=== PATIENT | male | born 2005 | race Caucasian/White ===

== ENCOUNTER 2023-09-06 16:32 | Outpatient (CLI) | payer MEDICAID, SELFPAY | END 2023-09-06 16:33 | disposition home or self-care (01) | LOC: NFLDUCREF 16:32 | PROVIDERS: PCP Nurse Practitioner; Visit Provider Nurse Practitioner | DX: L02.416 Cutaneous abscess of left lower limb (principal); B95.62 Methicillin resistant Staphylococcus aureus infection as the cause of diseases classified elsewhere | CPT/HCPCS: 87070; 87186 ==

== ENCOUNTER 2024-01-04 12:24 | Emergency (ER) | payer MEDICAID, OTHER, SELFPAY ==
[2024-01-04 12:37] VITALS: BP 131/84; PULSE 56; RESP 18; TEMP 36.1; O2SAT 99; BMI 21.4
--- NOTE | 2024-01-04 12:40 | CRLHL7_ITS ---
For Patients: As a result of the Century Cures Act, medical imaging exams and procedure reports are released immediately into your electronic medical record. You may view this report before your referring provider. If you have questions, please contact your health care provider. INDICATION: Trauma. TECHNIQUE: Right ankle radiographs, 3 views. COMPARISON: None. FINDINGS: There is a linear lucency involving the anterior process of the calcaneus without definite cortical discontinuity. The joint spaces are preserved. The talar dome remains smooth. The ankle mortise joint space is preserved. No significant soft tissue edema or radiopaque foreign bodies. IMPRESSION: Questionable linear lucency involving the anterior process of the calcaneus may represent a subtle nondisplaced fracture. Correlate with point tenderness. If clinically warranted, recommend CT for improved characterization. Dictated by Neville Bravo MD @ 01/04/2024 1:31:51 PM (Electronically Signed)
--- NOTE | 2024-01-04 13:16 | CRLHL7_ITS ---
For Patients: As a result of the Century Cures Act, medical imaging exams and procedure reports are released immediately into your electronic medical record. You may view this report before your referring provider. If you have questions, please contact your health care provider. INDICATION: Trauma. TECHNIQUE: Right foot radiographs, 3 views. COMPARISON: None. FINDINGS: There is a suspected nondisplaced fracture of the anterior process of the calcaneus. The joint spaces are preserved. The Lisfranc joint appears intact. Probable bipartite tibial hallux sesamoid, with a normal anatomic variation. No significant soft tissue edema or radiopaque foreign bodies. IMPRESSION: Suspected nondisplaced fracture of the anterior process of the calcaneus. Correlate with point tenderness. CT may be considered for improved characterization if clinically warranted. Dictated by Neville Bravo MD @ 01/04/2024 2:14:51 PM (Electronically Signed)
--- NOTE | 2024-01-04 13:24 | ED.GENADULT ---
HPI - General Adult General Date Seen: 01/04/24 Chief complaint: Extremity Pain/Injury, Lower Stated complaint: dropped beam on ankle at work Time Seen by Provider: 01/04/24 13:07 History of Present Illness HPI narrative: This is a pleasant generally healthy 18-year-old male presenting to the ER today with his co-worker for a work related injury to his right foot and ankle. He was working a large metal pipe on to a strap for a hassan for to be lifted in the air when it came loose from his shoulders and fell. It struck him on the posterior and lateral side of his right foot. She it pushed his foot into the ground and created a upward flexion of his forefoot and toes. He has developed some pain especially in the mid foot with some swelling over the dorsal lateral midfoot. Pain with weight-bearing. No associated numbness or weakness in the toes. No laceration. No pain in his knee, tibia/fibula, gastroc. Related Data Home Medications ?Medication ?Instructions ?Recorded ?Confirmed buspirone 10 mg tablet 10 mg PO BID 09/06/23 12/21/23 escitalopram oxalate 20 mg tablet mg PO 09/06/23 12/21/23 gabapentin 600 mg tablet mg PO 09/06/23 12/21/23 lamotrigine 25 mg tablet 50 mg PO BID 09/06/23 12/21/23 Previous Rx's ?Medication ?Instructions ?Recorded mupirocin 2 % topical ointment 1 applic topical TID #15 grams 12/21/23 Allergies Allergy/AdvReac Type Severity Reaction Status Date / Time Penicillins Allergy Verified 12/21/23 08:29 [facility] Medical History (Updated 01/04/24 @ 16:13 by Lencho Lentz MD) MRSA (methicillin resistant staph aureus) culture positive ?Z22.322 - Carrier or suspected carrier of Methicillin resistant Staphylococcus aureus (ICD-10) Exam Narrative: Exam Narrative: Constitutional: Appears well-developed and well-nourished. Active. Non-toxic appearing. HENT: Head: Atraumatic. No signs of injury. Nose: No nasal discharge. Mouth/Throat: Mucous membranes are moist. Pharynx is normal. Tonsils symmetric. Uvula midline. Airway patent. Eyes: Conjunctivae normal and EOM are normal. Pupils are equal, round, and reactive to light. Right eye exhibits no discharge. Left eye exhibits no discharge. No icterus. Neck: Normal range of motion. Neck supple. No adenopathy. No stridor. Cardiovascular: Normal rate and regular rhythm. No murmur heard. No murmurs, rubs, or gallops. Brisk capillary refill Pulmonary/Chest: Effort normal. No stridor. No respiratory distress. No wheezes.No rhonchi. No rales. No retractions. Musculoskeletal: Normal except for his right foot. Right lower extremity: Hip nontender, normal range of motion. Femur, quad, hamstring on tear noted. Knee normal inspection. Normal range of motion. No tenderness. Tibial spine, proximal tibia, proximal fibula nontender. Gastrocnemius and calf muscles nontender. Achilles nontender. Posterior calcaneus and heel are nontender. Medial and lateral malleolus of the ankle are nontender. Limited range of motion of the ankle due to foot pain and swelling. He does have a fairly large area of swelling and evolving ecchymosis on the lateral and dorsal aspect of the midfoot just anterior to the lateral malleolus. There is no bony tenderness at the base of the 5th metatarsal. Arch of the foot is nontender. Forefoot and toes are nontender. He does have palpable and normal DP and PT pulses with normal brisk distal cap refill. Intact distal sensory function with light touch in the dorsal 1st webspace, sole of the foot, medial and lateral foot. Normal range of motion. Neurological: Alert. Normal strength. No cranial nerve deficit or sensory deficit. Coordination normal. GCS eye subscore is 4. GCS verbal subscore is 5. GCS motor subscore is 6. Skin: Skin is warm. No rash noted. Const: Vital Signs, click to edit/add: Vital Signs - 24 hr 01/04/24 12:37 Temperature 97 F L Pulse Rate [Pulse Oximeter] 56 L Respiratory Rate 18 Blood Pressure [Ri ght Upper Arm] 131/84 Pulse Oximetry 99 Oxygen Delivery Me thod Room Air Course Vital Signs Vital signs: Initial Vital Signs Temperature 97 F L 01/04/24 12:37 Temperature Source Temporal Artery Scan 01/04/24 12:37 Pulse Rate 56 L 01/04/24 12:37 Respiratory Rate 18 01/04/24 12:37 Blood Pressure 131/84 01/04/24 12:37 Blood Pressure Mean 99 01/04/24 12:37 Pulse Oximetry 99 01/04/24 12:37 Oxygen Delivery Method Room Air 01/04/24 12:37 Vital Signs Temperature 97 F L 01/04/24 12:37 Pulse Rate 56 L 01/04/24 12:37 Respiratory Rate 18 01/04/24 12:37 Blood Pressure 131/84 01/04/24 12:37 Pulse Oximetry 99 01/04/24 12:37 Oxygen Delivery Method Room Air 01/04/24 12:37 Temperature 97 F L 01/04/24 12:37 Pulse Rate 56 L 01/04/24 12:37 Respiratory Rate 18 01/04/24 12:37 Blood Pressure 131/84 01/04/24 12:37 Pulse Oximetry 99 01/04/24 12:37 Oxygen Delivery Method Room Air 01/04/24 12:37 Medications Administered Medications: Discontinued Medications Generic Name Dose Route Start Last Admin Trade Name Freq PRN Reason Stop Dose Admin Ibuprofen 600 mg 01/04/24 13:45 01/04/24 15:46 Ibuprofen 200 Mg Tablet PO 01/04/24 13:46 Not Given ONCE ONE Medical Decision Making MDM Narrative Medical decision making narrative: 18-year-old male presenting to the ER today with his co-worker for evaluation of an accidental right foot injury that occurred at work this afternoon. A metal pipe that was being loaded onto a hassan fell loose from its stays and landed directly on the patient's foot. He describes that he had his ankle flexed little bit off the ground and the pipe hit him right on the top/side of the foot. He has had pain with weight-bearing ever since then. X-rays of the patient's right ankle were ordered by nursing in triage and are negative for any acute ankle fracture. On my clinical exam he does have marked swelling and tenderness over the dorsal lateral midfoot. This raises concern for possible foot fracture such as a calcaneus, talus, or tarsal bone fracture. Also concerning for potential Lisfranc joint injury. I sent the patient back for x-rays of his foot and they do confirm a nondisplaced fracture through the anterior process of the calcaneus. Otherwise foot x-rays look normal. He is neurovascularly intact. Discussed with Orthopedics. They would agree with the plan for nonweightbearing with crutches and Cam boot. They will see him in clinic next week for further evaluation. They can not obtain CT scanning clinic as necessary. Although calcaneus fractures are often associated with spine fractures because they are associated with fall from height, in this instance the patient had a direct blow onto the top/side of his foot by heavy pipe. I do not think he needs spine imaging her for a radiography. Discussed fracture care, splint care. Strict nonweightbearing status. Precautions for return to the ER and complete symptoms of compartment syndrome reviewed in detail with the patient and his co-worker. Questions answered and they are comfortable plan for outpatient follow-up next week with Orthopedics. Imaging Data XR foot: Attestation: I have reviewed the pertinent imaging results. Radiologist's impression: IMPRESSION: Suspected nondisplaced fracture of the anterior process of the calcaneus. Correlate with point tenderness. CT may be considered for improved characterization if clinically warranted. XR ankle: Attestation: I have reviewed the pertinent imaging results. Radiologist's impression: IMPRESSION: Questionable linear lucency involving the anterior process of the calcaneus may represent a subtle nondisplaced fracture. Correlate with point tenderness. If clinically warranted, recommend CT for improved characterization. Discharge Plan Discharge Clinical Impression: Calcaneus fracture, right Instructions: Calcaneal Fracture (ED) Additional Instructions: As we discussed, wear the walking boot and use the crutches whenever your up and around. Do not bear any weight on your right foot because stepping on your right foot could cause displacement of your broken bone. Keep your foot elevated when you can. Put up on a pillow when he resting on the couch or in bed. Apply an ice pack for 15-20 minutes every 3-4 hours to help reduce swelling and bruising. Use Tylenol or ibuprofen if needed for pain. Please follow-up with the [facility] next week for a recheck appointment. He will need follow-up x-rays to make sure the fracture is healing. If it displaces you may end up needing surgery. If you need to reschedule your orthopedic appointment, call [phone] As we discussed, return to the ER right away if you have any problems especially worsening or uncontrolled pain, numbness or tingling in your foot, pallor or discoloration of your foot, or if you have any other problems. Prescriptions: No Action escitalopram oxalate 20 mg tablet PO gabapentin 600 mg tablet PO buspirone 10 mg tablet 10 mg PO BID lamotrigine 25 mg tablet 50 mg PO BID mupirocin 2 % ointment 1 applic topical TID Qty: 15 0RF Follow Up/Referrals: Provider,Not a Local [Primary Care Provider] - Stand Alone Forms: [employer] Info Instructions
== END 2024-01-04 16:16 | disposition home or self-care (01) ==
PROVIDERS: Emergency Provider Emergency Medicine
DX: S92.001A Unspecified fracture of right calcaneus, initial encounter for closed fracture (principal); W22.8XXA Striking against or struck by other objects, initial encounter; Y99.0 Civilian activity done for income or pay
CPT/HCPCS: 73610; 73630; 99283

== ENCOUNTER 2024-01-15 07:42 | Outpatient (CLI) | payer OTHER, SELFPAY ==
--- NOTE | 2024-01-15 08:00 | CRLHL7_ITS ---
For Patients: As a result of the Century Cures Act, medical imaging exams and procedure reports are released immediately into your electronic medical record. You may view this report before your referring provider. If you have questions, please contact your health care provider. Indication: Injury, calcaneal fracture Technique: Noncontrast CT right foot Please note that all CT scans at this facility use dose modulation, iterative reconstruction, and/or weight-based dosing when appropriate to reduce radiation dose to as low as reasonably achievable. Comparison: X-rays 01/04/2024 Findings: There is a mildly displaced fracture involving the anterior process of the calcaneus with extension to the calcaneocuboid joint where there is 1-2 millimeters of articular surface offset. The fracture also extends to the subtalar joint without articular surface incongruity. The mortise is intact. No osteochondral defect. Small chip fractures involving the dorsal aspect of the proximal 1st metatarsal and proximal 3rd metatarsal also noted. Impression: Mildly displaced intra-articular fracture involving the anterior process of the calcaneus. Small dorsal chip fractures at the bases of the proximal 1st and 3rd metatarsals. Please note that all CT scans at this facility use dose modulation, iterative reconstruction, and/or weight-based dosing when appropriate to reduce radiation dose to as low as reasonably achievable. Dictated by Carlos Dumont MD @ 01/15/2024 12:23:23 PM (Electronically Signed)
== END 2024-01-15 07:43 | disposition home or self-care (01) ==
PROVIDERS: Visit Provider Orthopaedic Surgery
DX: S92.001A Unspecified fracture of right calcaneus, initial encounter for closed fracture (principal); S92.401A Displaced unspecified fracture of right great toe, initial encounter for closed fracture; S92.911A Unspecified fracture of right toe(s), initial encounter for closed fracture
CPT/HCPCS: 73700